=== PATIENT | female | born 1960 | race Caucasian/White ===

== ENCOUNTER 2017-04-18 15:51 | Emergency (ER) | payer MEDICARE, MEDICAID ==
[~2017-04-18] VITALS: Ht 160 cm; Wt 85.9 kg
[~2017-04-18 15:51] MED LIST: ACET-1600 PO; ALBU18HF INH; BLAC80CA PO; CARI350T PO; CEPH-368 PO; DEXL30CA2 PO; ESTR0.6246 PO; FLUT1DIS3 INH; GABA600T2 PO; HYDR-3144 PO; HYDR-3307 PO; IBUP800T PO; LIOT25TA3 PO; MULT1CAP19 PO; OXYB5TAB7 PO; SERT100T5 PO; TRAM50TA2 PO; TRAZ50TA18 PO; TYLENOL PM PO; VITA1TAB19 PO; [UNRECOGNIZED DRUG - CODE] PO
[2017-04-18 17:44] VITALS: BP 135/71
[2017-04-18] MEDS ORDERED: ONDANSETRON 2MG/ML, 2ML ONE (17:58)
[2017-04-18] MEDS ORDERED: HYDROmorphone 1 MG/ML, 1ML ONE (17:58)
[2017-04-18] MEDS ORDERED: SODIUM CHLORIDE FLUSH 10ML SYR IVF ONE (18:00)
[2017-04-18] MEDS ORDERED: HYDROmorphone 1 MG/ML, 1ML IVPush PRN (18:00)
[2017-04-18] MEDS ORDERED: PLEASE ENTER ALLERGIES MC SCH ×2 (18:00)
[2017-04-18] MEDS ORDERED: ONDANSETRON 2MG/ML, 2ML IVPush ONE (18:00)
[2017-04-18] MEDS ORDERED: SODIUM CHLORIDE 0.9% 1,000ML IVBOLUS ONE (18:00)
== END 2017-04-18 19:48 | disposition home or self-care (01) ==
LOC: ED 16:16
DX: M54.2 Cervicalgia (principal)
CPT/HCPCS: 96361; 96374; 96375; 99284; J1170; J2405; J7030

== ENCOUNTER → 2017-07-15 | Outpatient (CLI) | payer MEDICARE, MEDICAID ==
[~2017-07-15] MED LIST changes: +CALC1TAB78 PO; +DEXL60CA2 PO; +ESTR0.45 PO; +ETOD400T PO; +FLUT9.9S NAS; +GABA300C10 PO; -HYDR-3144 PO; +HYDR-3245 PO; +IBUP-1223 PO; -IBUP800T PO; +LORA10TA3 PO; +SERT25TA PO; -[UNRECOGNIZED DRUG - CODE] PO
== END | disposition home or self-care (01) ==
LOC: STAR 11:32
PROVIDERS: ATTEND Otolaryngology
DX: Z02.9 Encounter for administrative examinations, unspecified (principal)

== ENCOUNTER → 2018-03-01 | Outpatient (CLI) | payer MEDICARE, MEDICAID ==
[~2018-03-01] MED LIST changes: +ESTR1TAB15 PO
[2018-03-01 15:42] LABS: MICROSCOPIC NOT IND
[2018-03-01 15:44] LABS: BASOPHILS # (AUTO) 0.02 x10^3/uL (0-0.1); BASOPHILS % (AUTO) 1 % (0-1); EOSINOPHILS # (AUTO) 0.17 x10^3/uL (0-0.4); EOSINOPHILS % (AUTO) 4 % (1-7); LYMPHOCYTES # (AUTO) 1.57 x10^3/uL (1-3.4); LYMPHOCYTES % (AUTO) 38 % (22-44); MD NO; MEAN CORPUSCULAR HEMOGLOBIN 29.6 pg (27.0-34.8); MEAN CORPUSCULAR HGB CONC 33.6 g/dL (32.4-35.8); MEAN CORPUSCULAR VOLUME 88.2 fL (80-100); MEAN PLATELET VOLUME 6.5 fL (7.4-10.4); MONOCYTES # (AUTO) 0.21 x10^3/uL (0.2-0.8); MONOCYTES % (AUTO) 5 % (2-9); NEUTROPHILS # (AUTO) 2.17 x10^3/uL (1.8-6.8); NEUTROPHILS % (AUTO) 52 % (42-75); PLATELET COUNT 256 x10^3/uL (130-400); RED BLOOD COUNT 4.08 x10^6/uL (3.82-5.3); RED CELL DISTRIBUTION WIDTH 14.1 % (9.6-15.2)
[2018-03-01 15:50] LABS: INTERNATIONAL NORMALIZED RATIO 0.95 (0.93-1.1); PROTHROMBIN TIME 9.9 Seconds (9.6-11.5)
[2018-03-01 15:54] LABS: ANION GAP 10 mmol/L (5-15); CALCIUM 8.9 mg/dL (8.5-10.1); CHLORIDE 107 mmol/L (98-107); CREATININE 0.78 mg/dL (0.55-1.02)
== END | disposition home or self-care (01) ==
LOC: STAR 14:26
PROVIDERS: ATTEND Orthopaedic Surgery Orthopaedic Surgery of the Spine
DX: Z01.818 Encounter for other preprocedural examination (principal); M17.11 Unilateral primary osteoarthritis, right knee
CPT/HCPCS: 36415; 71046; 80048; 81003; 85025; 85610; 85651; 85730; 93005

== ENCOUNTER 2018-03-10 09:00 | Inpatient (IN) | payer MEDICARE, MEDICAID ==
[~2018-03-10] VITALS: Ht 160 cm; Wt 101.4 kg
[2018-03-10] MEDS ORDERED: VANCOMYCIN 1,700 MG in SODIUM CHLORIDE 0.9% 250 ML IV ONE (09:30)
[2018-03-10] MEDS ORDERED: VANCOMYCIN PER PHARMACY MC PRN (09:30)
[2018-03-10 09:42] VITALS: BP 124/76
[2018-03-10] MEDS ORDERED: MIDAZOLAM 1 MG/ML, 2ML ONE (09:45)
[2018-03-10] MEDS ORDERED: FENTANYL PF 100 MCG/2ML ONE ×2 (09:45→13:28)
[2018-03-10] MEDS ORDERED: LACTATED RINGERS 1,000 ML IV SCH (09:48)
[2018-03-10] MEDS ORDERED: TRAZODONE PO (09:52)
[2018-03-10] MEDS ORDERED: BACL-19 PO (09:52)
[2018-03-10] MEDS ORDERED: ACET-1600 PO (09:52)
[2018-03-10] MEDS ORDERED: PHARMACOKINETIC CONSULTATION MC ONE (10:00)
[2018-03-10] MEDS ORDERED: FAMOTIDINE 20 MG TABLET ONE (10:22)
[2018-03-10] MEDS ORDERED: ONDANSETRON ODT 8 MG ONE (10:23)
[2018-03-10] MEDS ORDERED: OxyconTIN ER 10 MG TAB.ER ONE (10:23)
[2018-03-10] MEDS ORDERED: SCOPOLAMINE PATCH, 1.5MG PATCH.TD72 TD ONE ×2 (10:23→10:30)
[2018-03-10] MEDS ORDERED: BUPIVACAINE/PF 0.5% ONE (10:27)
[2018-03-10] MEDS ORDERED: EPINEPHRINE 1 MG/ML, 1ML ONE (10:28)
[2018-03-10] MEDS ORDERED: VANCOMYCIN 1,000 MG ONE (10:28)
[2018-03-10] MEDS ORDERED: TRANEXAMIC ACID 100 MG/ML, 10ML ONE ×2 (10:28)
[2018-03-10] MEDS ORDERED: FAMOTIDINE 20 MG TABLET PO ONE (10:30)
[2018-03-10] MEDS ORDERED: ONDANSETRON ODT 8 MG PO ONE (10:30)
[2018-03-10] MEDS ORDERED: OXYcodone IR 5MG TABLET PO ONE (10:30)
[2018-03-10] MEDS ORDERED: OxyconTIN ER 10 MG TAB.ER PO ONE (11:00)
[2018-03-10] MEDS ORDERED: ONDANSETRON 2MG/ML, 2ML IVPush PRN ×2 (12:00→15:00)
[2018-03-10] MEDS ORDERED: PROMETHAZINE 25 MG/ML, 1ML IV PRN (12:00)
[2018-03-10] MEDS ORDERED: MEPERIDINE/PF 25MG/0.5ML IVPush PRN (12:00)
[2018-03-10] MEDS ORDERED: EPHEDRINE 50 MG/ML, 1ML IVPush PRN (12:00)
[2018-03-10] MEDS ORDERED: LABETALOL 5MG/ML, 20ML IV PRN (12:00)
[2018-03-10] MEDS ORDERED: HYDROcodone/APAP 7.5-325MG/15ML UDC PO PRN (12:00)
[2018-03-10] MEDS ORDERED: DIAZEPAM 5 MG/ML, 2ML IVPush PRN (12:00)
[2018-03-10] MEDS ORDERED: MIDAZOLAM 1 MG/ML, 2ML IV PRN (12:00)
[2018-03-10] MEDS ORDERED: PROMETHAZINE 12.5 MG SUPP PR PRN (12:00)
[2018-03-10] MEDS ORDERED: hydrALAzine 20 MG/ML, 1ML IV PRN (12:00)
[2018-03-10] MEDS ORDERED: ALBUTEROL SULFATE 2.5 MG/3 ML NPPB PRN (12:00)
[2018-03-10] MEDS ORDERED: OXYcodone 5 MG/5 ML ORAL.SOL UDC PO PRN (12:00)
[2018-03-10] MEDS ORDERED: METOPROLOL 1 MG/ML, 5ML IV PRN (12:00)
[2018-03-10] MEDS ORDERED: PROPOFOL 10 MG/ML, 20ML ONE (12:10)
[2018-03-10] MEDS ORDERED: DEXAMETHASONE 4 MG/ML, 1ML ONE (12:10)
[2018-03-10] MEDS ORDERED: CEFAZOLIN 1,000 MG ONE (12:10)
[2018-03-10] MEDS ORDERED: BUPIVACAINE/PF 0.5% INFIL ONE (12:18)
[2018-03-10] MEDS ORDERED: EPINEPHRINE 1 MG/ML, 1ML INFIL ONE (12:19)
[2018-03-10] MEDS ORDERED: MEPERIDINE/PF 25MG/0.5ML ONE (12:49)
[2018-03-10] MEDS ORDERED: HYDROmorphone 2 MG/ML, 1ML ONE (13:01)
[2018-03-10] MEDS: HYDROmorphone 1 MG/ML, 1ML IV PRN ×4 (13:03→13:25)
[2018-03-10] MEDS: FENTANYL PF 100 MCG/2ML IV PRN ×2 (13:36→13:50)
[2018-03-10 14:04] VITALS: BP 115/54
[2018-03-10] MEDS ORDERED: LORazepam 2 MG/ML, 1ML IV PRN (15:00)
[2018-03-10] MEDS ORDERED: TRANEXAMIC ACID 1,000 MG in SODIUM CHLORIDE 0.9% 100 ML IVPB ONE (15:00)
[2018-03-10] MEDS ORDERED: KETOROLAC 30 MG/1 ML IV PRN (15:00)
[2018-03-10] MEDS ORDERED: LORazepam 1MG TABLET PO PRN (15:00)
[2018-03-10] MEDS ORDERED: ALBUTEROL HFA 90 MCG/SPRAY INH PRN (15:00)
[2018-03-10] MEDS ORDERED: SENNA/DOCUSATE TABLET PO PRN (15:00)
[2018-03-10] MEDS ORDERED: PROMETHAZINE 25 MG/ML, 1ML IM PRN (15:00)
[2018-03-10] MEDS ORDERED: ONDANSETRON ODT 4 MG PO PRN (15:00)
[2018-03-10] MEDS ORDERED: DIAZEPAM 5 MG TABLET PO PRN (15:00)
[2018-03-10] MEDS ORDERED: PROMETHAZINE 25 MG SUPP PR PRN (15:00)
[2018-03-10] MEDS ORDERED: ALUMINUM/MAG/SIMETHICONE 30 ML UDC PO PRN (15:00)
[2018-03-10] MEDS ORDERED: ZOLPIDEM 5MG TABLET PO PRN (15:00)
[2018-03-10] MEDS ORDERED: DEXAMETHASONE 6 MG in SODIUM CHLORIDE 0.9% 50 ML IV PRN (15:00)
[2018-03-10] MEDS ORDERED: SCOPOLAMINE PATCH, 1.5MG PATCH.TD72 TD SCH (15:00)
[2018-03-10] MEDS ORDERED: DIPHENHYDRAMINE 25 MG CAPSULE PO PRN (15:00)
[2018-03-10] MEDS ORDERED: BISACODYL 10 MG SUPP PR PRN (15:00)
[2018-03-10] MEDS ORDERED: MAGNESIUM HYDROXIDE 8%, 30ML UDC PO PRN (15:00)
[2018-03-10] MEDS: D5%-0.45NACL+KCL 20MEQ 1,000 ML IV SCH (16:04)
[2018-03-10] MEDS: CEFAZOLIN PMX 2GM/100ML 100 ML IVPB SCH ×2 (16:04→23:53)
[2018-03-10] MEDS: GABAPENTIN 300 MG CAPSULE PO SCH ×2 (16:05→20:16)
[2018-03-10] MEDS: LABETALOL 5MG/ML, 20ML IVPush SCH ×2 (16:05→23:00)
[2018-03-10] MEDS: OXYcodone IR 5MG TABLET PO SCH ×3 (16:05→22:26)
[2018-03-10] MEDS: DOCUSATE 100 MG CAPSULE PO SCH (20:16)
[2018-03-10] MEDS: ACETAMINOPHEN 500 MG TABLET PO PRN (20:25)
[2018-03-10 20:58] VITALS: BP 120/70
[2018-03-10] MEDS ORDERED: SODIUM CHLORIDE FLUSH 10ML SYR IVF SCH (21:00)
[2018-03-10] MEDS ORDERED: DITROPAN PO SCH (21:00)
[2018-03-10] MEDS ORDERED: BACLOFEN 10 MG TABLET PO SCH (21:00)
[2018-03-10] MEDS ORDERED: DEXAMETHASONE 4 MG/ML, 1ML IV PRN ×2 (22:30)
[2018-03-10] MEDS: ASPIRIN 325 MG TABLET EC PO SCH (23:54)
[2018-03-11 00:04] VITALS: BP 112/73
[2018-03-11] MEDS ORDERED: DEXAMETHASONE 6 MG in SODIUM CHLORIDE 0.9% 50 ML IV ONE (01:00)
[2018-03-11] MEDS: OXYcodone IR 5MG TABLET PO SCH ×4 (01:01→10:07)
[2018-03-11] MEDS: LABETALOL 5MG/ML, 20ML IVPush SCH (03:42)
[2018-03-11 03:49] VITALS: BP 105/70
[2018-03-11] MEDS: D5%-0.45NACL+KCL 20MEQ 1,000 ML IV SCH (03:57)
[2018-03-11] MEDS: ACETAMINOPHEN 500 MG TABLET PO PRN ×2 (03:57→07:53)
[2018-03-11 05:38] LABS: BASOPHILS % (AUTO) 0 % (0-1); EOSINOPHILS # (AUTO) 0.01 x10^3/uL (0-0.4); EOSINOPHILS % (AUTO) 0 % (1-7); LYMPHOCYTES # (AUTO) 0.63 x10^3/uL (1-3.4); LYMPHOCYTES % (AUTO) 7 % (22-44); MD NO; MEAN CORPUSCULAR HEMOGLOBIN 29.7 pg (27.0-34.8); MEAN CORPUSCULAR HGB CONC 33.5 g/dL (32.4-35.8); MEAN CORPUSCULAR VOLUME 88.7 fL (80-100); MEAN PLATELET VOLUME 6.9 fL (7.4-10.4); MONOCYTES # (AUTO) 0.41 x10^3/uL (0.2-0.8); MONOCYTES % (AUTO) 5 % (2-9); NEUTROPHILS # (AUTO) 7.62 x10^3/uL (1.8-6.8); NEUTROPHILS % (AUTO) 88 % (42-75); PLATELET COUNT 224 x10^3/uL (130-400); RED BLOOD COUNT 3.46 x10^6/uL (3.82-5.3); RED CELL DISTRIBUTION WIDTH 14.1 % (9.6-15.2)
[2018-03-11 07:07] VITALS: BP 109/66
[2018-03-11] MEDS ORDERED: PANTOPROZOLE 40MG TABLET PO SCH (07:30)
[2018-03-11] MEDS ORDERED: SERTRALINE 50MG TABLET PO SCH (09:00)
[2018-03-11] MEDS ORDERED: ESTRADIOL 0.5 MG TABLET PO SCH (09:00)
[2018-03-11] MEDS ORDERED: LORATADINE 10 MG TABLET PO SCH (09:00)
[2018-03-11 10:00] VITALS: BP 107/53
[2018-03-11] MEDS: GABAPENTIN 300 MG CAPSULE PO SCH (10:07)
[2018-03-11] MEDS: ASPIRIN 325 MG TABLET EC PO SCH (10:08)
[2018-03-11] MEDS: DOCUSATE 100 MG CAPSULE PO SCH (10:08)
[2018-03-11] MEDS ORDERED: HYDR2TAB29 PO (10:31)
[2018-03-11] MEDS ORDERED: CARI350T PO (10:33)
[2018-03-11] MEDS ORDERED: CEPH-368 PO (10:34)
[2018-03-11] MEDS ORDERED: ASPI-650 PO (10:35)
== END 2018-03-11 10:55 | disposition home or self-care (01) | DRG 470 ==
LOC: ORIP 09:00 → 4NOR 14:06
PROVIDERS: ADMIT Orthopaedic Surgery Orthopaedic Surgery of the Spine; ATTEND Orthopaedic Surgery Orthopaedic Surgery of the Spine
PROC: 0SRC0J9 Replacement of Right Knee Joint with Synthetic Substitute, Cemented, Open Approach (ICD-10-PCS; principal; 2018-03-10 10:30)
DX: M17.11 Unilateral primary osteoarthritis, right knee (principal); M48.02 Spinal stenosis, cervical region; E11.9 Type 2 diabetes mellitus without complications; F41.9 Anxiety disorder, unspecified; J45.909 Unspecified asthma, uncomplicated; K21.9 Gastro-esophageal reflux disease without esophagitis; G47.30 Sleep apnea, unspecified; Z98.51 Tubal ligation status; Z90.710 Acquired absence of both cervix and uterus
CPT/HCPCS: 36415; 85025; 87081; C1713; J0171; J0690; J1100; J1170; J2175; J2250; J2704; J3010; J3370; J3490; Q0162; C1776; J3480; J7050; J7120